=== PATIENT | female | born 1945 | race African-American/Black ===

== ENCOUNTER 2016-09-18 20:15 | Emergency (ER) | payer MEDICARE ==
[~2016-09-18] VITALS: Ht 157.5 cm; Wt 70.0 kg
[2016-09-18] MEDS ORDERED: SODIUM CHLORIDE 0.9% 1,000 ML IV ONE (20:48)
[2016-09-18 21:16] LABS: BASOPHILS % 0.7 % (0.0-2.0); EOSINOPHILS % 1.1 % (0.0-5.0); HEMATOCRIT. 35.4 % (36.0-48.0); LYMPHOCYTES % 26.2 % (20.0-50.0); MEAN CORPUSCULAR HEMOGLOBIN 30.7 pg (28.0-32.0); MEAN CORPUSCULAR HGB CONC 33.8 g/dL (31.0-37.0); MEAN CORPUSCULAR VOLUME 90.7 fL (81.0-99.0); MEAN PLATELET VOLUME 9.5 fl (7.4-10.4); MONOCYTES % 6.4 % (2.0-8.0); NEUTROPHILS % 65.6 % (40.0-76.0); PLATELET 155 x1000/uL (130-400); RED BLOOD CELL COUNT 3.91 mill/uL (4.2-5.4); RED CELL DISTRIBUTION WIDTH 15.1 % (11.6-14.6)
[2016-09-18 21:24] LABS: ALBUMIN 3.8 g/dL (3.4-5.0); ANION GAP 14; CALCIUM 9.4 mg/dL (8.5-10.1); CARBON DIOXIDE 26 mEq/L (21-32); CHLORIDE 108 mEq/L (98-107); INDEX HEMOLYSI 1 (1-3); INDEX ICTERIC 1 (1-4); INDEX LIPEMIC 1 (1-3); UREA NITROGEN BLOOD 23 mg/dL (7-21)
[2016-09-18 21:27] LABS: ALANINE AMINOTRANSFERASE 20 IU/L (13-61); eGFR 55 mL/min (>60)
[2016-09-18 21:31] LABS: TROPONIN I < 0.02 ng/mL (0.00-0.04)
[2016-09-18 22:30] VITALS: BP 151/69
== END 2016-09-18 23:42 | disposition home or self-care (01) ==
LOC: ER 20:16
DX: R55 Syncope and collapse (principal); E86.0 Dehydration; I10 Essential (primary) hypertension; E78.00 Pure hypercholesterolemia, unspecified
CPT/HCPCS: 36415; 70450; 71010; 80053; 84484; 85025; 93005; 96360; 96361; 99285; J7030